=== PATIENT | female | born 1955 | race Caucasian/White ===

== ENCOUNTER 2023-07-21 16:47 | Inpatient (IN) | payer MEDICARE, SELFPAY ==
[~2023-07-21 16:47] MED LIST: Iopamidol 370 76% 100 ML VIAL ONE; Iopamidol-370 76% 500 ML MDV (1 ML CHARGE) ONE
[2023-07-21 17:21] LABS: Actual Bicarbonate (HCO3v) 22.9 mEq/L (22-28); Base Excess 0.5 mEq/L (-2.0 to +3.0); Calcium, Ionized (venous) 0.94 mmol/L (1.16-1.32); Chloride (VBG) 102 mmol/L (98-106); Hematocrit-VBG 44 % (36.0-47.0); Hemoglobin (Hb) 14.8 g/dL (11.7-16.1); Sodium 138 mmol/L (133-146); pH (venous) 7.487 (7.32-7.43)
[2023-07-21 17:29] LABS: #Basophils 0.1 thou/uL (0.0-0.2); #Eosinphils 0.3 thou/uL (0.0-0.7); #Monocytes 0.9 thou/uL (0.11-0.59); #Neutrophils 7.1 thou/uL (1.40-6.50); %Lymphocytes 16.1 % (21.0-51.0); %Monocytes 8.8 % (0.0-10.0); %Neutrophils 70.7 % (42.0-75.0); Hematocrit 41.1 % (36.0-47.0); Hemoglobin 14.1 g/dL (12.0-16.0); Mean Corpuscular HGB CONC 34.3 g/dL (32.0-36.0); Mean Corpuscular Hemoglobin 31.6 pg (27.0-31.0); Mean Corpuscular Volume 92.2 fl (78.0-98.0); Mean Platelet Volume 9.8 fL (7.4-10.4); Platelet Count 259 10x3/uL (130-400); RBC Distribution Width 13.1 % (11.5-14.5); Red Blood Cell (RBC) Count 4.46 mill/uL (4.20-5.40); White Blood Cell (WBC) Count 10.1 10x3/uL (4.8-10.8)
[2023-07-21 17:41] LABS: Prothrombin Time 13.1 sec (12.0-14.7)
[2023-07-21 17:50] LABS: ALT (SGPT) 9 U/L (8-55); AST (SGOT) 10 U/L (5-34); Albumin 3.1 g/dL (3.4-4.8); Alkaline Phosphatase 58 U/L (40-110); Anion Gap 13 mmol/L (10-20); BUN (Urea Nitrogen) 14 mg/dL (9.8-20.1); Bilirubin, Total 0.4 mg/dL (0.2-1.2); Calc. Creatinine Clearance 0 mL/min (70-130); Calcium 8.4 mg/dL (7.8-10.44); Carbon Dioxide 21 mmol/L (23-31); Chloride 105 mmol/L (98-107); Estimated GFR 64; Globulin 3.4 g/dL (2.4-3.5); Glucose 122 mg/dL (80-115); Potassium 3.5 mmol/L (3.5-5.1); Protein, Total 6.5 g/dL (5.8-8.1); Sodium 135 mmol/L (136-145)
[2023-07-21 17:52] LABS: Troponin I Less than 0.010 ng/mL (< 0.028)
[2023-07-21] MEDS ORDERED: Heparin 10,000 UNITS/ 10 ML VIAL ONE (17:55)
[2023-07-21] MEDS ORDERED: Fentanyl 250 MCG/5 ML VIAL ONE (18:06)
[2023-07-21] MEDS ORDERED: Lidocaine 1% (PF) 30 ML VIAL ONE (18:25)
[2023-07-21] MEDS ORDERED: Vecuronium 10 MG VIAL ONE (18:32)
[2023-07-21] MEDS ORDERED: Succinylcholine 200 MG/10 ml SYRINGE FS ONE (18:32)
[2023-07-21] MEDS ORDERED: Lidocaine 1% PF 5 ML VIAL ONE (18:32)
[2023-07-21] MEDS ORDERED: PROPOFOL 200 MG/20 ML VIAL ONE (18:32)
[2023-07-21] MEDS ORDERED: Dexamethasone 20 MG/5 ML VIAL ONE (18:32)
[2023-07-21] MEDS ORDERED: hydrALAZINE 20 MG/ML VIAL SLOW IVP PRN (19:20)
[2023-07-21] MEDS ORDERED: niCARdipine 25 MG in Sodium Chloride 0.9% 250 ML 250 ML IVPB PRN (19:20)
[2023-07-21] MEDS ORDERED: Labetalol HCl 100 MG/20 ML VIAL SLOW IVP PRN (19:20)
[2023-07-21] MEDS ORDERED: Ventilator Sedation Protocol 1 EACH FS SCH (20:00)
[2023-07-21 20:03] LABS: Base Excess (BEa) 0.3 mEq/L (-2.0 to +3.0); CO2 Tension 40.5 mmHg (35.0-45.0); Calcium, Ionized (arterial) 1.05 mmol/L (1.12-1.30); Carboxyhemoglobin (COHb) 0.6 gm% (0.0-3.0); Hematocrit-ABG 41 % (36.0-47.0); O2 Tension (PaO2), arterial 88.6 mmHg (> 80.0); Potassium - ABG Lab 3.66 mmol/L (3.70-5.30); pH, Arterial 7.408 (7.35-7.45)
[2023-07-21 20:05] LABS: Puncture Site Arterial Line
[2023-07-21] MEDS ORDERED: Fentanyl BOLUS 250 ML IVPB PRN (20:15)
[2023-07-21] MEDS ORDERED: DISCONTINUE PREVIOUS NARCOTIC PAIN MEDICATIONS AND BENZODIAZEPINES FS SCH (20:15)
[2023-07-21] MEDS ORDERED: Propofol BOLUS 1,000 MG/100 ML VIAL IV PRN (20:15)
[2023-07-21] MEDS ORDERED: Propofol 1,000 MG/100 ML VIAL IV PRN (20:15)
[2023-07-21] MEDS ORDERED: Morphine 2 MG/ML VIAL SLOW IVP PRN (20:15)
[2023-07-21] MEDS ORDERED: Lorazepam 2 MG/ML VIAL SLOW IVP PRN (20:15)
[2023-07-21] MEDS ORDERED: Fentanyl CADD 100 ML IV SCH (20:15)
[2023-07-21] MEDS ORDERED: Digoxin 0.5 MG/2 ML AMP SLOW IVP SCH (20:30)
[2023-07-21 21:26] LABS: #Basophils 0.1 thou/uL (0.0-0.2); #Monocytes 0.2 thou/uL (0.11-0.59); #Neutrophils 7.4 thou/uL (1.40-6.50); %Basophils 0.8 % (0.0-1.0); %Eosinophils 0.5 % (0.0-10.0); %Lymphocytes 9.5 % (21.0-51.0); %Monocytes 2.2 % (0.0-10.0); %Neutrophils 86.6 % (42.0-75.0); Hematocrit 40.3 % (36.0-47.0); Hemoglobin 13.5 g/dL (12.0-16.0); Mean Corpuscular HGB CONC 33.5 g/dL (32.0-36.0); Mean Corpuscular Hemoglobin 31.2 pg (27.0-31.0); Mean Corpuscular Volume 93.1 fl (78.0-98.0); Mean Platelet Volume 9.8 fL (7.4-10.4); Platelet Count 274 10x3/uL (130-400); RBC Distribution Width 13.1 % (11.5-14.5); Red Blood Cell (RBC) Count 4.33 mill/uL (4.20-5.40); White Blood Cell (WBC) Count 8.5 10x3/uL (4.8-10.8)
[2023-07-21 21:50] LABS: Anion Gap 11 mmol/L (10-20); BUN (Urea Nitrogen) 14 mg/dL (9.8-20.1); Calc. Creatinine Clearance 170 mL/min (70-130); Calcium 7.9 mg/dL (7.8-10.44); Carbon Dioxide 23 mmol/L (23-31); Chloride 107 mmol/L (98-107); Estimated GFR 76; Glucose 149 mg/dL (80-115); Potassium 3.6 mmol/L (3.5-5.1); Sodium 137 mmol/L (136-145)
[2023-07-21] MEDS: Atorvastatin Calcium 40 MG TAB PO SCH (22:30)
[2023-07-22] MEDS: Sodium Chloride 0.9% 1,000 ML IV SCH ×3 (01:29→20:30)
[2023-07-22 03:45] LABS: Hemoglobin A1c 5.9 % (4.0-6.0)
[2023-07-22 04:03] LABS: Cardiac Risk 3.1 (Less than 4.5); Cholesterol 151 mg/dl (< 200 Desired); HDL Cholesterol 48 mg/dL (>60 Neg Risk); LDL Cholesterol, Calculated 92 mg/dL; Triglycerides 54 mg/dL (Less than 150)
[2023-07-22] MEDS: Mometasone 100 MCG/Formoterol 5 MCG 120 PUFF INHALER INH SCH ×2 (07:16→18:41)
[2023-07-22 07:28] LABS: Base Excess (BEa) 0.5 mEq/L (-2.0 to +3.0); CO2 Tension 35.5 mmHg (35.0-45.0); Calcium, Ionized (arterial) 1.08 mmol/L (1.12-1.30); Hematocrit-ABG 43 % (36.0-47.0); Hemoglobin (Hb) 14.7 g/dL (12.0-16.0); O2 Tension (PaO2), arterial 136.8 mmHg (> 80.0); Potassium - ABG Lab 3.62 mmol/L (3.70-5.30); pH, Arterial 7.448 (7.35-7.45)
[2023-07-22 07:34] LABS: Puncture Site ALINE
[2023-07-22 07:35] LABS: ALV-art Gradient 104.025 mmHg (0-20)
[2023-07-22] MEDS: Aspirin 300 MG Suppository PR SCH ×2 (07:38→07:49)
[2023-07-22] MEDS: Aspirin 325 mg Enteric Coated Tablet PO SCH (07:48)
[2023-07-22] MEDS: Pantoprazole 40 MG VIAL IVP SCH (07:48)
[2023-07-22] MEDS: Atorvastatin Calcium 40 MG TAB PO SCH (20:30)
[2023-07-22] MEDS ORDERED: Acetaminophen 325 MG TAB ONE (20:42)
[2023-07-23] MEDS: Aspirin 325 mg Enteric Coated Tablet PO SCH (08:16)
[2023-07-23] MEDS: Pantoprazole 40 MG VIAL IVP SCH (08:17)
[2023-07-23] MEDS: Aspirin 300 MG Suppository PR SCH (08:17)
[2023-07-23] MEDS: Sodium Chloride 0.9% 1,000 ML IV SCH ×2 (08:18→21:52)
[2023-07-23] MEDS: Mometasone 100 MCG/Formoterol 5 MCG 120 PUFF INHALER INH SCH ×2 (08:26→18:42)
[2023-07-23] MEDS ORDERED: Losartan 25 MG TAB PO SCH (10:45)
[2023-07-23] MEDS ORDERED: Labetalol HCl 100 MG/20 ML VIAL SLOW IVP PRN (10:45)
[2023-07-23] MEDS ORDERED: hydrALAZINE 20 MG/ML VIAL SLOW IVP PRN (10:45)
[2023-07-23] MEDS: Atorvastatin Calcium 40 MG TAB PO SCH (21:45)
[2023-07-24] MEDS: Sodium Chloride 0.9% 1,000 ML IV SCH (08:08)
[2023-07-24] MEDS: Losartan 25 MG TAB PO SCH (08:08)
[2023-07-24] MEDS: Mometasone 100 MCG/Formoterol 5 MCG 120 PUFF INHALER INH SCH ×2 (08:18→18:36)
[2023-07-24] MEDS ORDERED: FLU VACC QS2023(65UP)/MF59C/PF 60 MCG/0.5 ML SYRINGE IM ONE (09:00)
[2023-07-24] MEDS: Atorvastatin Calcium 40 MG TAB PO SCH (20:25)
[2023-07-25 04:27] LABS: #Basophils 0.1 thou/uL (0.0-0.2); #Eosinphils 0.4 thou/uL (0.0-0.7); #Monocytes 0.7 thou/uL (0.11-0.59); #Neutrophils 5.5 thou/uL (1.40-6.50); %Basophils 0.9 % (0.0-1.0); %Eosinophils 4.3 % (0.0-10.0); %Lymphocytes 18.1 % (21.0-51.0); %Monocytes 8.5 % (0.0-10.0); %Neutrophils 67.8 % (42.0-75.0); Hematocrit 38.2 % (36.0-47.0); Hemoglobin 12.8 g/dL (12.0-16.0); Mean Corpuscular HGB CONC 33.5 g/dL (32.0-36.0); Mean Corpuscular Hemoglobin 30.8 pg (27.0-31.0); Mean Platelet Volume 9.9 fL (7.4-10.4); Platelet Count 228 10x3/uL (130-400); Red Blood Cell (RBC) Count 4.15 mill/uL (4.20-5.40); White Blood Cell (WBC) Count 8.1 10x3/uL (4.8-10.8)
[2023-07-25 04:51] LABS: Anion Gap 9 mmol/L (10-20); BUN (Urea Nitrogen) 11 mg/dL (9.8-20.1); Calc. Creatinine Clearance 188 mL/min (70-130); Calcium 8.1 mg/dL (7.8-10.44); Carbon Dioxide 25 mmol/L (23-31); Chloride 107 mmol/L (98-107); Estimated GFR 88; Glucose 101 mg/dL (80-115); Potassium 3.4 mmol/L (3.5-5.1); Sodium 138 mmol/L (136-145)
[2023-07-25] MEDS: Mometasone 100 MCG/Formoterol 5 MCG 120 PUFF INHALER INH SCH ×2 (08:05→19:27)
[2023-07-25] MEDS: Losartan 25 MG TAB PO SCH (08:18)
[2023-07-25] MEDS ORDERED: Iopamidol-370 76% 500 ML MDV (1 ML CHARGE) ONE (09:41)
[2023-07-25] MEDS: Ipratropium/Albuterol 3 ML NEB NEB PRN ×3 (12:38→23:18)
[2023-07-25] MEDS ORDERED: Furosemide 40 MG/4 ML VIAL SLOW IVP SCH (14:00)
[2023-07-25 14:41] LABS: Actual Bicarbonate (HCO3a) 23.3 mEq/L (22-28); Base Excess (BEa) 0.8 mEq/L (-2.0 to +3.0); CO2 Tension 31.7 mmHg (35.0-45.0); Calcium, Ionized (arterial) 1.13 mmol/L (1.12-1.30); Carboxyhemoglobin (COHb) 0.9 gm% (0.0-3.0); Hematocrit-ABG 43 % (36.0-47.0); Hemoglobin (Hb) 14.6 g/dL (12.0-16.0); pH, Arterial 7.485 (7.35-7.45)
[2023-07-25 14:45] LABS: O2 Tension (PaO2), arterial 56.8 mmHg (> 80.0)
[2023-07-25 14:46] LABS: ALV-art Gradient 53.305 mmHg (0-20); Puncture Site RRA
[2023-07-25 17:47] LABS: Hematocrit 42.9 % (36.0-47.0); Hemoglobin 14.5 g/dL (12.0-16.0); Platelet Count 219 10x3/uL (130-400)
[2023-07-25] MEDS: Heparin 25,000 units/D5W 500 ML IVPB SCH (18:21)
[2023-07-25] MEDS: Heparin 10,000 UNITS/ 10 ML VIAL SLOW IVP SCH (18:21)
[2023-07-25 18:27] LABS: Troponin I 0.588 ng/mL (< 0.028)
[2023-07-25] MEDS ORDERED: Losartan 25 MG TAB PO SCH (19:00)
[2023-07-25] MEDS: Atorvastatin Calcium 40 MG TAB PO SCH (20:50)
[2023-07-26 00:44] LABS: PTT 164.9 sec (22.9-36.1)
[2023-07-26 04:15] LABS: #Basophils 0.1 thou/uL (0.0-0.2); #Eosinphils 0.2 thou/uL (0.0-0.7); #Monocytes 0.8 thou/uL (0.11-0.59); #Neutrophils 6.5 thou/uL (1.40-6.50); %Basophils 0.7 % (0.0-1.0); %Eosinophils 2.1 % (0.0-10.0); %Lymphocytes 17.2 % (21.0-51.0); %Monocytes 8.9 % (0.0-10.0); %Neutrophils 70.7 % (42.0-75.0); Hematocrit 37.9 % (36.0-47.0); Hemoglobin 12.7 g/dL (12.0-16.0); Mean Corpuscular HGB CONC 33.5 g/dL (32.0-36.0); Mean Corpuscular Hemoglobin 31.1 pg (27.0-31.0); Mean Corpuscular Volume 92.9 fl (78.0-98.0); Mean Platelet Volume 9.8 fL (7.4-10.4); Platelet Count 215 10x3/uL (130-400); RBC Distribution Width 13.2 % (11.5-14.5); Red Blood Cell (RBC) Count 4.08 mill/uL (4.20-5.40); White Blood Cell (WBC) Count 9.2 10x3/uL (4.8-10.8)
[2023-07-26 04:45] LABS: Anion Gap 12 mmol/L (10-20); BUN (Urea Nitrogen) 12 mg/dL (9.8-20.1); Calc. Creatinine Clearance 171 mL/min (70-130); Calcium 8.3 mg/dL (7.8-10.44); Carbon Dioxide 24 mmol/L (23-31); Chloride 107 mmol/L (98-107); Estimated GFR 78; Glucose 108 mg/dL (80-115); Potassium 3.6 mmol/L (3.5-5.1); Sodium 139 mmol/L (136-145)
[2023-07-26] MEDS: Heparin 10,000 UNITS/ 10 ML VIAL SLOW IVP SCH ×2 (04:57→22:06)
[2023-07-26] MEDS: Mometasone 100 MCG/Formoterol 5 MCG 120 PUFF INHALER INH SCH ×2 (06:36→18:38)
[2023-07-26] MEDS: Losartan 25 MG TAB PO SCH (08:35)
[2023-07-26] MEDS: Heparin 25,000 units/D5W 500 ML IVPB SCH (10:00)
[2023-07-26 11:35] LABS: PTT 133.1 sec (22.9-36.1)
[2023-07-26] MEDS ORDERED: predniSONE 20 MG TAB PO SCH (15:00)
[2023-07-26] MEDS: Ipratropium/Albuterol 3 ML NEB NEB SCH ×2 (18:37→22:21)
[2023-07-26] MEDS: Atorvastatin Calcium 40 MG TAB PO SCH (20:55)
[2023-07-27] MEDS: Ipratropium/Albuterol 3 ML NEB NEB SCH ×6 (02:17→22:10)
[2023-07-27 04:32] LABS: #Monocytes 0.5 thou/uL (0.11-0.59); #Neutrophils 8.2 thou/uL (1.40-6.50); %Basophils 0.2 % (0.0-1.0); %Eosinophils 0.1 % (0.0-10.0); %Lymphocytes 10.5 % (21.0-51.0); %Monocytes 4.8 % (0.0-10.0); Hematocrit 39.9 % (36.0-47.0); Hemoglobin 13.3 g/dL (12.0-16.0); Mean Corpuscular HGB CONC 33.3 g/dL (32.0-36.0); Mean Platelet Volume 9.9 fL (7.4-10.4); Platelet Count 247 10x3/uL (130-400); RBC Distribution Width 13.2 % (11.5-14.5); Red Blood Cell (RBC) Count 4.29 mill/uL (4.20-5.40); White Blood Cell (WBC) Count 9.7 10x3/uL (4.8-10.8)
[2023-07-27 05:58] LABS: PTT 152.8 sec (22.9-36.1)
[2023-07-27] MEDS: Mometasone 100 MCG/Formoterol 5 MCG 120 PUFF INHALER INH SCH ×2 (07:23→18:55)
[2023-07-27 08:04] LABS: Chloride 108 mmol/L (98-107); Potassium 4.4 mmol/L (3.5-5.1); Sodium 137 mmol/L (136-145)
[2023-07-27 08:05] LABS: Calcium 8.9 mg/dL (7.8-10.44); Glucose 126 mg/dL (80-115)
[2023-07-27 08:07] LABS: Anion Gap 13 mmol/L (10-20); Carbon Dioxide 20 mmol/L (23-31)
[2023-07-27 08:09] LABS: Calc. Creatinine Clearance 165 mL/min (70-130); Estimated GFR 75
[2023-07-27 08:10] LABS: BUN (Urea Nitrogen) 11 mg/dL (9.8-20.1)
[2023-07-27] MEDS: Losartan 25 MG TAB PO SCH (08:30)
[2023-07-27] MEDS: predniSONE 20 MG TAB PO SCH (08:30)
[2023-07-27 15:26] LABS: Hematocrit 41.2 % (36.0-47.0); Hemoglobin 13.7 g/dL (12.0-16.0); Platelet Count 253 10x3/uL (130-400)
[2023-07-27] MEDS: Atorvastatin Calcium 40 MG TAB PO SCH (21:19)
[2023-07-27] MEDS: Heparin 25,000 units/D5W 500 ML IVPB SCH (23:53)
[2023-07-28] MEDS: Ipratropium/Albuterol 3 ML NEB NEB SCH ×6 (02:39→22:10)
[2023-07-28 04:48] LABS: #Eosinphils 0.1 thou/uL (0.0-0.7); #Monocytes 0.9 thou/uL (0.11-0.59); #Neutrophils 8.2 thou/uL (1.40-6.50); %Basophils 0.3 % (0.0-1.0); %Eosinophils 1.3 % (0.0-10.0); %Lymphocytes 16.8 % (21.0-51.0); %Monocytes 8.1 % (0.0-10.0); %Neutrophils 73.1 % (42.0-75.0); Hematocrit 38.9 % (36.0-47.0); Hemoglobin 12.8 g/dL (12.0-16.0); Mean Corpuscular HGB CONC 32.9 g/dL (32.0-36.0); Mean Corpuscular Volume 94.2 fl (78.0-98.0); Platelet Count 221 10x3/uL (130-400); RBC Distribution Width 13.7 % (11.5-14.5); Red Blood Cell (RBC) Count 4.13 mill/uL (4.20-5.40); White Blood Cell (WBC) Count 11.2 10x3/uL (4.8-10.8)
[2023-07-28 05:21] LABS: Anion Gap 11 mmol/L (10-20); BUN (Urea Nitrogen) 15 mg/dL (9.8-20.1); Calc. Creatinine Clearance 165 mL/min (70-130); Calcium 8.5 mg/dL (7.8-10.44); Carbon Dioxide 22 mmol/L (23-31); Chloride 108 mmol/L (98-107); Estimated GFR 75; Glucose 120 mg/dL (80-115); Potassium 3.4 mmol/L (3.5-5.1); Sodium 138 mmol/L (136-145)
[2023-07-28] MEDS: Mometasone 100 MCG/Formoterol 5 MCG 120 PUFF INHALER INH SCH ×2 (08:23→18:34)
[2023-07-28] MEDS: Apixaban 5 MG TAB PO SCH ×2 (09:21→21:01)
[2023-07-28] MEDS: Losartan 25 MG TAB PO SCH (09:21)
[2023-07-28] MEDS: predniSONE 20 MG TAB PO SCH (09:22)
[2023-07-28] MEDS ORDERED: Potassium Chloride 20 MEQ TAB PO SCH (15:15)
[2023-07-28] MEDS: Atorvastatin Calcium 40 MG TAB PO SCH (21:01)
[2023-07-29 01:48] VITALS: BMI 62.8
[2023-07-29] MEDS: Ipratropium/Albuterol 3 ML NEB NEB SCH ×6 (02:25→22:10)
[2023-07-29 04:25] LABS: #Monocytes 0.8 thou/uL (0.11-0.59); %Basophils 0.3 % (0.0-1.0); %Eosinophils 0.4 % (0.0-10.0); %Monocytes 8.6 % (0.0-10.0); %Neutrophils 74.2 % (42.0-75.0); Hematocrit 39.3 % (36.0-47.0); Hemoglobin 12.8 g/dL (12.0-16.0); Mean Corpuscular HGB CONC 32.6 g/dL (32.0-36.0); Mean Corpuscular Hemoglobin 30.7 pg (27.0-31.0); Mean Corpuscular Volume 94.2 fl (78.0-98.0); Mean Platelet Volume 10.4 fL (7.4-10.4); Platelet Count 239 10x3/uL (130-400); RBC Distribution Width 13.8 % (11.5-14.5); Red Blood Cell (RBC) Count 4.17 mill/uL (4.20-5.40); White Blood Cell (WBC) Count 9.4 10x3/uL (4.8-10.8)
[2023-07-29 04:49] LABS: Anion Gap 13 mmol/L (10-20); BUN (Urea Nitrogen) 19 mg/dL (9.8-20.1); Calc. Creatinine Clearance 155 mL/min (70-130); Calcium 8.7 mg/dL (7.8-10.44); Carbon Dioxide 25 mmol/L (23-31); Chloride 106 mmol/L (98-107); Estimated GFR 69; Glucose 118 mg/dL (80-115); Potassium 4.1 mmol/L (3.5-5.1); Sodium 140 mmol/L (136-145)
[2023-07-29] MEDS: Mometasone 100 MCG/Formoterol 5 MCG 120 PUFF INHALER INH SCH ×2 (06:55→19:00)
[2023-07-29] MEDS ORDERED: Potassium Chloride 20 MEQ TAB PO SCH (08:00)
[2023-07-29] MEDS: Apixaban 5 MG TAB PO SCH ×2 (08:40→20:28)
[2023-07-29] MEDS: Losartan 25 MG TAB PO SCH (08:40)
[2023-07-29] MEDS: predniSONE 20 MG TAB PO SCH (08:40)
[2023-07-29] MEDS ORDERED: Aspirin 81 mg Enteric Coated Tablet PO SCH (13:30)
[2023-07-29 16:38] LABS: Hematocrit 39.9 % (36.0-47.0); Platelet Count 232 10x3/uL (130-400)
[2023-07-29] MEDS: Atorvastatin Calcium 40 MG TAB PO SCH (20:28)
[2023-07-30] MEDS: Ipratropium/Albuterol 3 ML NEB NEB SCH ×4 (02:28→13:49)
[2023-07-30 05:14] LABS: #Eosinphils 0.1 thou/uL (0.0-0.7); #Monocytes 1.2 thou/uL (0.11-0.59); #Neutrophils 6.6 thou/uL (1.40-6.50); %Basophils 0.4 % (0.0-1.0); %Eosinophils 1.2 % (0.0-10.0); %Lymphocytes 18.9 % (21.0-51.0); %Neutrophils 67.1 % (42.0-75.0); Hematocrit 45.2 % (36.0-47.0); Hemoglobin 14.5 g/dL (12.0-16.0); Mean Corpuscular HGB CONC 32.1 g/dL (32.0-36.0); Mean Corpuscular Volume 96.8 fl (78.0-98.0); Mean Platelet Volume 11.1 fL (7.4-10.4); Platelet Count 192 10x3/uL (130-400); Red Blood Cell (RBC) Count 4.67 mill/uL (4.20-5.40); White Blood Cell (WBC) Count 9.8 10x3/uL (4.8-10.8)
[2023-07-30] MEDS: Mometasone 100 MCG/Formoterol 5 MCG 120 PUFF INHALER INH SCH (07:27)
[2023-07-30] MEDS ORDERED: Aspirin 81 mg Enteric Coated Tablet PO SCH (09:00)
[2023-07-30 09:02] LABS: Calcium 8.8 mg/dL (7.8-10.44); Chloride 106 mmol/L (98-107); Potassium 3.9 mmol/L (3.5-5.1); Sodium 141 mmol/L (136-145)
[2023-07-30 09:03] LABS: Glucose 83 mg/dL (80-115)
[2023-07-30 09:04] LABS: Anion Gap 14 mmol/L (10-20); Carbon Dioxide 25 mmol/L (23-31)
[2023-07-30 09:06] LABS: Calc. Creatinine Clearance 162 mL/min (70-130); Estimated GFR 73
[2023-07-30 09:07] LABS: BUN (Urea Nitrogen) 17 mg/dL (9.8-20.1)
[2023-07-30] MEDS: Apixaban 5 MG TAB PO SCH (10:07)
[2023-07-30] MEDS: Losartan 25 MG TAB PO SCH (10:07)
[2023-07-30] MEDS: predniSONE 20 MG TAB PO SCH (10:07)
[2023-07-30 12:18] VITALS: BP 133/62; TEMP 97.6
== END 2023-07-30 14:04 | disposition home or self-care (01) | DRG 23 ==
LOC: ERS 16:47 → CCL 18:19 → CCU 19:48 → 2SW 07-25 10:37 → 2SE 07-27 20:08
PROVIDERS: ADMIT Internal Medicine; ATTEND Internal Medicine
PROC: 03CG3ZZ Extirpation of Matter from Intracranial Artery, Percutaneous Approach (ICD-10-PCS; principal; 2023-07-21)
PROC: B31R1ZZ Fluoroscopy of Intracranial Arteries using Low Osmolar Contrast (ICD-10-PCS; 2023-07-21)
PROC: 4A133R1 Monitoring of Arterial Saturation, Peripheral, Percutaneous Approach (ICD-10-PCS; 2023-07-21)
PROC: 0BH17EZ Insertion of Endotracheal Airway into Trachea, Via Natural or Artificial Opening (ICD-10-PCS; 2023-07-21)
PROC: 5A1935Z Respiratory Ventilation, Less than 24 Consecutive Hours (ICD-10-PCS; 2023-07-21)
DX: I63.312 Cerebral infarction due to thrombosis of left middle cerebral artery (principal); I26.99 Other pulmonary embolism without acute cor pulmonale; J95.821 Acute postprocedural respiratory failure; I61.9 Nontraumatic intracerebral hemorrhage, unspecified; G81.91 Hemiplegia, unspecified affecting right dominant side; J90 Pleural effusion, not elsewhere classified; R47.02 Dysphasia; I10 Essential (primary) hypertension; E78.5 Hyperlipidemia, unspecified; J44.9 Chronic obstructive pulmonary disease, unspecified; R29.810 Facial weakness; E66.01 Morbid (severe) obesity due to excess calories; Z90.2 Acquired absence of lung [part of]
CPT/HCPCS: 36415; 36416; 36600; 61645; 70450; 70496; 70498; 71045; 71275; 80048; 80053; 80061; 82805; 83036; 83735; 83880; 84443; 84484; 85025; 85610; 85730; 93005; 93010; 93306; 93970; 94003; 94640; 94760; C1769; C1887; C1894; C9113; J0360; J1100; J1644; J2001; J2704; J3010; J7050; J7512; J7620; Q9967